=== PATIENT | female | born 1985 | race Caucasian/White ===

== ENCOUNTER → 2019-12-18 13:21 | Outpatient (BNVA) | payer OTHER, SELFPAY | PROVIDERS: Family Provider Nurse Practitioner; PCP Nurse Practitioner; Visit Provider Nurse Practitioner Family | DX: Z11.59 Encounter for screening for other viral diseases (principal) | CPT/HCPCS: 87635 ==

== ENCOUNTER 2021-01-11 17:51 | Emergency (ER) | payer SELFPAY ==
[2021-01-11 17:57] VITALS: BP 131/89; PULSE 83; RESP 18; TEMP 36.8; O2SAT 99; BMI 48.0
--- NOTE | 2021-01-11 18:04 | ED_ITS ---
HPI - Extremity Injury (Lower) General: Chief Complaint: Extremity Injury, Lower Stated Complaint: left leg pain due to fall Time Seen by Provider: 01/11/21 17:56 Source: patient Mode of arrival: wheelchair Limitations: no limitations History of Present Illness: HPI Narrative: Patient is a nice 35-year-old female presents to ED today with complaint of left calf pain and swelling. Patient tells me just prior to arrival she was walking down a flight of stairs and when she stepped down she heard a pop and immediate pain and swelling to her left calf. She denies any twisting injury. There was no fall. She states all of her pain is located to her posterior calf. Patient states she is not able to bear weight secondary to discomfort. MD complaint: leg injury Onset (ago): hour(s) Place: home Severity: severe Relieving factors: immobilization Exacerbating factors: weight bearing, movement and palpation Associated symptoms: Reports inability to bear weight Other symptoms: none Review of Systems Const: Denies: fever(s) Card: Denies: chest pain Resp: Denies: dyspnea Musc: Reports: extremity pain (L calf) and extremity swelling (L calf); Denies: joint pain, joint swelling, joint redness or joint warmth Skin/Breast: Denies: rash Neuro: Denies: numbness in extremities, weakness in extremities or sensory changes PFSH ED PFSH: Medical History (Updated 01/11/21 @ 18:26 by JOHN Hickey) History of herpes zoster History of thyroid cancer Hypothyroidism associated with surgical procedure Surgical History (Updated 07/16/19 @ 09:07 by CLAYTON Boss) History of 2012 and 2013 History of melanoma excision Back in 2009 History of thyroidectomy, total 2017 History of tonsillectomy 2016 Family History (Updated 07/16/19 @ 09:07 by CLAYTON Boss) Sister Cancer Bone Denies family history of Diabetes Hypertension Social History Smoking and tobacco status: never smoked Second hand smoke exposure: No Alcohol intake: current Alcohol intake frequency: holidays/special occasions only Alcohol type: wine Adopted: No Caregiver/support person: Yes Lives independently: Yes Household members: spouse and children Housing: Manufactured/Mobile home Marital status: Number of children: 2 Highest education level completed: Some College, No Degree service: No Current occupational status: unemployed Sexually active: Yes Current gender identity: Female Female Reproductive History: Date of last menstrual period: 07/03/19 Physical Exam Const: COMMON NORMALS: no acute distress, patient oriented x3, no limitations and alert GENERAL APPEARANCE: cooperative Extremity: GENERAL: Yes normal exam except as noted OTHER: pt has significant swelling and tenderness to L posterior calf; no ecchymosis; no tenderness to Achilles tendon insertion; negative Carvalho's test Neuro: COMMON NORMALS: patient oriented x3, moves all extremities, no focal motor deficits and no sensory deficits noted SENSORIUM/ORIENTATION: Yes alert GAIT: Yes Unable to assess gait Skin: COMMON NORMALS: no rashes or lesions noted GENERAL SKIN EXAM: no rashes or lesions noted TRAUMA: no lacerations or abrasions Course Vital Signs: Vital signs: Vital Signs Temperature 98.3 F 01/11/21 17:57 Pulse Rate 83 01/11/21 17:57 Respiratory Rate 18 01/11/21 18:21 Blood Pressure 131/89 01/11/21 17:57 Pulse Oximetry 99 01/11/21 17:57 MDM - Extremity Injury (Lower) MDM Narrative: Medical decision making narrative: History and physical exam suspicious for gastrocnemius or possibly plantaris tear/sprain. Due to inability to bear weight will go ahead and place her in a tall walking boot/crutches and have her follow up with orthopedics for further evaluation. Recommend ice, elevation, and compression. Imaging Data^: XR tib/fib: My impression: soft tissue swelling to posterior calf; no bony injuries noted Discharge Plan Discharge Patient Disposition: Home Clinical Impression: Gastrocnemius muscle tear Qualifiers: Encounter type: initial encounter Laterality: left Qualified Code(s): S86.112A - Strain of other muscle(s) and tendon(s) of posterior muscle group at lower leg level, left leg, initial encounter Condition: Stable Prescriptions: New ibuprofen 800 mg tablet 800 mg PO Q8H PRN (Reason: pain) Qty: 20 RF: 0 hydrocodone-acetaminophen 5-325 mg tablet 1 tab PO Q6H PRN (Reason: pain) Qty: 14 RF: 0 No Action levothyroxine 200 mcg tablet 200 mcg PO DAILY RF: 0 Discharge Orders: Discharge ED (Routine); Ordered 01/11/21 Ordered By: Rhonda Lazo Referrals: Hua Thompson, SUPERVISOR CUTTING AND SEWING ROOM-C [Primary Care Provider] - Patient Instructions: Opioid Safety Activity Restrictions/Additional Instructions: [email or web address]. We are providing ALL patients with information regarding opiate safety. If you received opiate pain medication during your stay or if you received a prescription for opiate pain medication-please review this handout. If not, you may disregard. Thank you. As we discussed no weightbearing until your follow-up appointment with orthopedics. Case management should reach out to you shortly to set you up with this appointment. You may take the prescribed Ibuprofen along with Tylenol as needed for discomfort. You may take the hydrocodone as needed for severe pain. Ice calf for 20 mins 4x daily and elevate above level of heart to help with swelling. You need to return to the emergency department for worsening or uncontrollable pain, pallor/coldness to the extremity, loss of sensation, color changes to the leg, or any other concerns you may have. Coding Level of Care Code ED Dietetic Aide for Chg Fwd Exam Expanded Problem Focused
--- NOTE | 2021-01-11 18:12 | XRR_ITS ---
PROCEDURE INFORMATION: Exam: XR Left Tibia and Fibula Exam date and time: 01/11/2021 6:12 PM Age: 35 years old Clinical indication: Lower leg; Left; Patient HX: C/O pain after pop sensation when slipped on a step; Additional info: Injury/swelling TECHNIQUE: Imaging protocol: XR Left tibia and fibula. Views: 2 views. COMPARISON: No relevant prior studies available. FINDINGS: Bones/joints: Normal. Soft tissues: Normal. XR/XR tibia fibula LT 2V [id number] IMPRESSION: No acute findings. Radiation Dose CTDIVOL = (mGy): DLP = (mGy-cm)
[2021-01-11 18:21] VITALS: RESP 18
[2021-01-11] MEDS: morphine 4 mg/mL SDV 1 mL IM (18:21)
--- NOTE | 2021-01-12 09:26 | DCPLANNER ---
pre school manager had message to schedule a follow up appointment for patient with ortho. pre school manager called the ortho clinic, spoke with Sammi, gave clinic patients information. pre school manager was told that patients information would be printed and reviewed. Clinic will call patient with appointment information.
--- NOTE | 2021-01-14 14:27 | DCPLANNER ---
Patient had a follow up appointment scheduled for 01.12.[address] Galarza at [facility] - patient did attend appointment.
== END 2021-01-11 18:55 | disposition home or self-care (01) ==
PROVIDERS: Emergency Provider Physician Assistant; PCP Nurse Practitioner
DX: S86.112A Strain of other muscle(s) and tendon(s) of posterior muscle group at lower leg level, left leg, initial encounter (principal); Z85.850 Personal history of malignant neoplasm of thyroid; X58.XXXA Exposure to other specified factors, initial encounter
CPT/HCPCS: 73590; 96372; 99283; E0114; J2270

== ENCOUNTER 2021-02-15 08:11 | Emergency (ER) | payer SELFPAY ==
[2021-02-15 08:42] VITALS: BP 122/94; PULSE 84; RESP 20; O2SAT 96; BMI 48.0
--- NOTE | 2021-02-15 08:42 | USR_ITS ---
PROCEDURE INFORMATION: Exam: US Nonobstetric Pelvis; Complete Exam date and time: 02/15/2021 8:42 AM Age: 35 years old Clinical indication: Other: Bleeding; Prior surgery; Surgery date: 6+ months; Surgery type: 2 c-secs; Patient HX: Positive home preg test; Additional info: Threatened TECHNIQUE: Imaging protocol: Transabdominal pelvic nonobstetric ultrasound. Complete exam. Real time ultrasound with image documentation. COMPARISON: US pelvic with transvaginal 03/29/2015 3:17 PM FINDINGS: GESTATION: Gestation: 7.2 mm endometrial stripe with no intrauterine at this time. Uterus: 9.3 x 5.0 x 6.6 cm uterus. Cervix: 4.2 cm cervix with trace fluid in the endocervical canal. Right ovary/adnexa: 3.2 x 1.7 x 2.1 cm right ovary. Unremarkable right ovary with no torsion. Left ovary/adnexa: Left ovary obscured at this time. Intraperitoneal space: Minimal fluid in the posterior cul-de-sac. Urinary bladder: Normal. Other findings: Unremarkable adnexa bilaterally. US/US pelvic with transvaginal IMPRESSION: 1. 4.2 cm cervix with trace fluid in the endocervical canal. 2. 7.2 mm endometrial stripe with no intrauterine at this time. 3. Left ovary obscured at this time. 4. Unremarkable right ovary with no torsion. 5. Unremarkable adnexa bilaterally. 6. Serial quantitative hCGs and/or followup ultrasound may be helpful.
--- NOTE | 2021-02-15 08:56 | ED_ITS ---
HPI - General Adult General: Chief complaint: General Medical Stated complaint: 6WEEKS PREG AND BLEEDING Time Seen by Provider: 02/15/21 08:39 History of Present Illness: HPI narrative: Patient woke up with vaginal bleeding this morning. Patient took 7 home test yesterday and in following decided she was possibly . Her and her do not use any sort of protection. Patient is 2 weeks late on her current's menses. Patient has had breast tenderness over the last month. Denies any nausea or vomiting urinary type symptoms fever or chills. Patient does have a negative Rh. complaint: Vaginal bleeding Onset (ago): minute(s) Severity: mild Severity scale (1-10): 1 Associated symptoms: Deny chest pain, headache(s), rash or vomiting Review of Systems Const: Denies: fever(s), chills or body aches Eyes: Denies: eye discharge ENMT: Denies: throat pain, oral sores or nasal congestion Card: Denies: chest pain or dyspnea on exertion Resp: Denies: wheezing or stridor GI: Denies: vomiting or diarrhea : Reports: vaginal bleeding Musc: Denies: extremity pain Skin/Breast: Denies: rash Neuro: Denies: headache(s) Psych: Denies: anxiety or depression Titi/Lymph: Denies: easy bruising PFSH ED PFSH: Medical History (Updated 02/15/21 @ 11:46 by MODESTO Hoyt) History of herpes zoster History of thyroid cancer Hypothyroidism associated with surgical procedure Surgical History History of 2012 and 2013 History of melanoma excision Back in 2009 History of thyroidectomy, total 2017 History of tonsillectomy 2016 Family History Sister Cancer Bone Denies family history of Diabetes Hypertension Social History Smoking and tobacco status: never smoked Second hand smoke exposure: No Alcohol intake: current Alcohol intake frequency: holidays/special occasions only Alcohol type: wine Adopted: No Caregiver/support person: Yes Lives independently: Yes Household members: spouse and children Housing: Manufactured/Mobile home Marital status: Number of children: 2 Highest education level completed: Some College, No Degree service: No Current occupational status: unemployed Sexually active: Yes Current gender identity: Female Female Reproductive History: Date of last menstrual period: 01/05/21 Physical Exam Const: COMMON NORMALS: no acute distress, average body habitus and patient oriented x3 HENMT: COMMON NORMALS: normocephalic HEAD & SCALP: normal to inspection and normocephalic FACE & SINUS: normal facial exam Eye: COMMON NORMALS: conjunctivae normal GENERAL EYE: appearance normal, both eyes and all related structures CONJUNCTIVA: Yes conjunctivae normal Neck/C-Spine: COMMON NORMALS: no JVD Chest: COMMONS NORMALS: normal inspection of the chest Resp: COMMON NORMALS: normal respiratory effort Cardio: COMMON NORMALS: no JVD, regular rate and regular rhythm RATE: regular rate RHYTHM: regular rhythm GI: COMMON NORMALS: Normal to inspection, nondistended, normoactive bowel sounds present Extremity: COMMON NORMALS: normal to inspection and full ROM Neuro: COMMON NORMALS: patient oriented x3 Course Vital Signs: Vital signs: Vital Signs Pulse Rate 83 02/15/21 12:19 Respiratory Rate 18 02/15/21 12:19 Blood Pressure 122/94 02/15/21 08:42 Pulse Oximetry 97 02/15/21 12:19 MDM - General Adult MDM Narrative: Medical decision making narrative: Patient presents with po ssible threatened miscarriage. Ultrasound not reveal an IUP in the uterus. hCG is 14.9. Discussed case Dr. Galdamez patient will follow serial hCG at clinic with MODESTO Juarez. Lab Data: Labs: Lab Results 02/15/21 02/15/21 02/15/21 10:20 10:20 10:20 WBC 10.4 10^3/uL H 10 ^3/uL (4.0-10.0) RBC 4.56 10^6/uL 10^6 /uL (4.1-5.3) Hgb 13.5 g/dL g/dL (11.5-15.3) Hct 39.8 % % (37.0-47.0) MCV 87.3 fl fl (81-99) MCH 29.6 pg pg (28.0-34.0) MCHC 33.9 g/dL g/dL (30.0-36.0) RDW 13.3 % % (12.1-15.1) Plt Count 305 10^3/cmm 10^3 /cmm (130-400) MPV 11.5 fL H fL (7.4-10.4) Neut % (Auto) 67.9 % % Lymph % (Auto) 23.8 % % [place] % (Auto) 4.7 % % Eos % (Auto) 2.5 % % Baso % (Auto) 0.8 % % Neut # (Auto) 7.09 10^3/uL 10^3 /uL (1.8-7.7) Lymph # (Auto) 2.5 10^3/uL 10^3/ uL (0.8-4.8) [place] # (Auto) 0.5 10^3/uL 10^3/ uL (0.2-0.9) Eos # (Auto) 0.3 10^3/uL 10^3/ uL (0.0-0.8) Baso # (Auto) 0.1 10^3/uL 10^3/ uL (0.0-0.1) Nucleated RBC % (a uto) 0 % % Nucleated RBCs # 0.0 /100WBC /100W BC PT INR Sodium 138 mmol/L mmol/L (136-145) Potassium 4.1 mmol/L mmol/L (3.5-5.1) Chloride 104 mmol/L mmol/L (98-107) Carbon Dioxide 20 mmol/L L mmol/ L (22-29) Anion Gap 18.1 (5-19) BUN 8 mg/dL mg/dL (6-20) Creatinine 0.8 mg/dL mg/dL (0.5-0.9) GFR Calculation 82.6 mL/min L mL/ min (90-130) Glucose 80 mg/dL mg/dL (65-115) Calculated Osmolal ity 283 mOsm/kg L mOs m/kg (285-295) Calcium 8.2 mg/dL L mg/dL (8.5-10.5) Ser , Jazmín i-Qnt 14.19 mIU/mL mIU/ mL Blood Type A Negative Rho(D) Type Negative Antibody Screen Negative 02/15/21 10:20 WBC RBC Hgb Hct MCV MCH MCHC RDW Plt Count MPV Neut % (Auto) Lymph % (Auto) [place] % (Auto) Eos % (Auto) Baso % (Auto) Neut # (Auto) Lymph # (Auto) [place] # (Auto) Eos # (Auto) Baso # (Auto) Nucleated RBC % (a uto) Nucleated RBCs # PT 14.00 SECONDS SEC ONDS (12.1-14.9) INR 1.05 (0.8-1.2) Sodium Potassium Chloride Carbon Dioxide Anion Gap BUN Creatinine GFR Calculation Glucose Calculated Osmolal ity Calcium Ser , Jazmín i-Qnt Blood Type Rho(D) Type Antibody Screen Discharge Plan Discharge Patient Disposition: Home Clinical Impression: , spontaneous threatened Condition: Stable Prescriptions: No Action levothyroxine 200 mcg tablet 200 mcg PO DAILY RF: 0 ibuprofen 800 mg tablet 800 mg PO Q8H PRN (Reason: pain) Qty: 20 RF: 0 hydrocodone-acetaminophen 5-325 mg tablet 1 tab PO Q6H PRN (Reason: pain) Qty: 14 RF: 0 Discharge Orders: Discharge ED (Routine); Ordered 02/15/21 Ordered By: Chung Pina Referrals: Hua Thompson, GEOPHYSICAL LABORATORY DIRECTOR-C [Primary Care Provider] - Discharge Diet: Usual diet Discharge Activity: Resume usual activity Patient Instructions: Threatened Miscarriage (ED) Activity Restrictions/Additional Instructions: Follow-up with Hua Thompson at the clinic on Tuesday for a serial serum hCG test. If any worsening symptoms between now and then please return here or see Samim. Coding Level of Care Code ED Web Sizer for Carey Fwd Exam Comprehensive
--- NOTE | 2021-02-15 09:36 | PC.NURSE ---
attempted to collect urine ultrasound at bedside will attempt later.
[2021-02-15 10:12] VITALS: PULSE 81; RESP 16; O2SAT 97
[2021-02-15 10:33] LABS: Basophils # 0.1 10^3/uL (0.0-0.1); Basophils % 0.8 %; Eosinophils # 0.3 10^3/uL (0.0-0.8); Eosinophils % 2.5 %; Hematocrit 39.8 % (37.0-47.0); Hemoglobin 13.5 g/dL (11.5-15.3); Lymphocytes # 2.5 10^3/uL (0.8-4.8); Lymphocytes % 23.8 %; Mean Corpuscular HGB Conc 33.9 g/dL (30.0-36.0); Mean Corpuscular Hemoglobin 29.6 pg (28.0-34.0); Mean Corpuscular Volume 87.3 fl (81-99); Mean Platelet Volume 11.5 fL (7.4-10.4); Monocytes # 0.5 10^3/uL (0.2-0.9); Monocytes % 4.7 %; Neutrophils # 7.09 10^3/uL (1.8-7.7); Neutrophils % 67.9 %; Nucleated Red Blood Cells % 0 %; Platelet Count 305 10^3/cmm (130-400); Red Blood Count 4.56 10^6/uL (4.1-5.3); Red Cell Distribution Width 13.3 % (12.1-15.1); White Blood Count 10.4 10^3/uL (4.0-10.0)
[2021-02-15 10:43] LABS: INR 1.05 (0.8-1.2)
[2021-02-15 10:50] LABS: HCG Quantitative 14.19 mIU/mL
[2021-02-15 11:00] LABS: Anion Gap 18.1 (5-19); Blood Urea Nitrogen 8 mg/dL (6-20); Calcium 8.2 mg/dL (8.5-10.5); Carbon Dioxide 20 mmol/L (22-29); Chloride 104 mmol/L (98-107); Glomerular Filtration Rate 82.6 mL/min (90-130); Glucose 80 mg/dL (65-115); Osmolality Calculated 283 mOsm/kg (285-295); Potassium 4.1 mmol/L (3.5-5.1); Sodium 138 mmol/L (136-145)
--- NOTE | 2021-02-15 11:12 | PC.NURSE ---
REPORT GIVEN TO LUDW[facility].
[2021-02-15 12:19] VITALS: PULSE 83; RESP 18; O2SAT 97
== END 2021-02-15 12:22 | disposition home or self-care (01) ==
PROVIDERS: Emergency Provider Nurse Practitioner Family; PCP Nurse Practitioner
DX: O20.0 Threatened abortion (principal); Z3A.01 Less than 8 weeks gestation of pregnancy; Z85.850 Personal history of malignant neoplasm of thyroid
CPT/HCPCS: 76830; 76856; 80048; 84702; 85025; 85610; 86850; 86900; 90384; 99283

== ENCOUNTER → 2021-03-05 11:11 | Outpatient (BNVA) | payer SELFPAY | PROVIDERS: PCP Nurse Practitioner; Visit Provider Nurse Practitioner | DX: E89.0 Postprocedural hypothyroidism (principal); O20.0 Threatened abortion | CPT/HCPCS: 80053; 82607; 84443; 84702 ==

== ENCOUNTER → 2021-07-03 09:12 | Outpatient (BNVA) | payer MEDICAID, SELFPAY | PROVIDERS: PCP Nurse Practitioner; Visit Provider Nurse Practitioner | DX: E89.0 Postprocedural hypothyroidism (principal); E07.9 Disorder of thyroid, unspecified | CPT/HCPCS: 80053; 82607; 84439; 84443; 84481; 84702 ==

== ENCOUNTER 2021-07-09 16:23 | Emergency (ER) | payer MEDICAID, SELFPAY ==
[2021-07-09 16:57] VITALS: BP 130/88; PULSE 87; RESP 16; TEMP 36.6; O2SAT 99; BMI 48.0
--- NOTE | 2021-07-09 17:49 | ED_ITS ---
HPI - Female Genitourinary General: Chief complaint: Urogenital-Female Stated complaint: 6weeks preg. bleeding Time Seen by Provider: 07/09/21 17:44 Source: patient Mode of arrival: ambulatory Limitations: no limitations History of Present Illness: 36-year-old female who is 6 weeks states she has had some vaginal spotting over the last day. States she is concerned she had a miscarriage at roughly 6 7 weeks back in February she denies any pain denies any heavy bleeding states is only spotting she is not seen an OB yet. Denies any worsening proving factors Associated symptoms: Deny abdominal pain, headache(s) or nausea Date of Last Menstrual Period: 05/31/21 Review of Systems Const: Denies: fever(s), chills, body aches or change in appetite Eyes: Denies: blurry vision or eye discomfort ENMT: Denies: throat pain or dental pain Card: Denies: chest pain Resp: Denies: dyspnea GI: Denies: abdominal pain, nausea, vomiting or diarrhea : Reports: vaginal bleeding Musc: Denies: neck pain or back pain Skin/Breast: Denies: rash Neuro: Denies: headache(s) Psych: Denies: depression Titi/Lymph: Denies: easy bruising All/Imm: Denies: urticaria PFSH ED PFSH: Medical History (Updated 07/09/21 @ 19:34 by David Cruz MD) History of herpes zoster History of thyroid cancer Hypothyroidism associated with surgical procedure Surgical History History of 2012 and 2013 History of melanoma excision Back in 2009 History of thyroidectomy, total 2017 History of tonsillectomy 2016 Family History Sister Cancer Bone Denies family history of Diabetes Hypertension Social History Smoking and tobacco status: never smoked Second hand smoke exposure: No Smoking risk assessment/counseling performed?: No Alcohol intake: current Alcohol intake frequency: holidays/special occasions only Alcohol type: wine Desire information about alcohol rehabilitation?: No Counseling given: No Desire information about substance/drug rehabilitation?: No Counseling given: No Adopted: No Caregiver/support person: No Lives independently: Yes Household members: spouse and children Housing: Manufactured/Mobile home Marital status: Number of children: 2 Highest education level completed: Some College, No Degree service: No Current occupational status: employed 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 History of recent travel: No Sexually active: Yes Current gender identity: Female Female Reproductive History: Date of last menstrual period: 05/31/21 Para: 2 Spontaneous abortions: Yes Physical Exam Const: COMMON NORMALS: no acute distress, patient oriented x3 and healthy appearing HENMT: COMMON NORMALS: normocephalic and atraumatic HEAD & SCALP: normocephalic and atraumatic Eye: COMMON NORMALS: Equal, round and reactive pupils present and EOMs intact bilaterally PUPIL: Yes Equal, round and reactive pupils present Neck/C-Spine: COMMON NORMALS: full ROM and supple Chest: COMMONS NORMALS: normal inspection of the chest and normal palpation of entire chest wall Resp: COMMON NORMALS: normal respiratory effort, No retractions, No use of accessory muscles and clear to auscultation bilaterally AUSCULTATION: clear to auscultation bilaterally Cardio: COMMON NORMALS: regular rate, regular rhythm and No murmurs present (Cardio) RATE: regular rate RHYTHM: regular rhythm GI: COMMON NORMALS: Normal to inspection, nondistended, normoactive bowel sounds present, Soft to palpation, non-tender and no masses PALPATION: Yes Soft to palpation Extremity: COMMON NORMALS: normal to inspection and full ROM Neuro: COMMON NORMALS: patient oriented x3, moves all extremities and no focal motor deficits Psych: COMMON NORMALS: mental status grossly normal, Normal thought process present and cooperative THOUGHT PROCESS: Normal thought process present Skin: COMMON NORMALS: no rashes or lesions noted and no wounds GENERAL SKIN EXAM: no rashes or lesions noted Course Vital Signs: Vital signs: Vital Signs Temperature 97.8 F 07/09/21 16:57 Pulse Rate 87 07/09/21 16:57 Respiratory Rate 16 07/09/21 16:57 Blood Pressure 130/88 07/09/21 16:57 Pulse Oximetry 99 07/09/21 16:57 MDM - Female Medical Decision Making Patient presents here with a threatened miscarriage ultrasound did show a yolk sac she is to follow-up in 2 days with her OB to have a repeat quantitative drawn patient given RhoGAM here she is stable for discharge return if worsening Lab Data : 07/09/21 18: Laboratory Results WBC 12.9 10^3/uL (4.0-10.0) H 07/09/21 18: RBC 4.52 10^6/uL (4.1-5.3) 07/09/21 18: Hgb 13.3 g/dL (11.5-15.3) 07/09/21 18: Hct 40.7 % (37.0-47.0) 07/09/21 18: MCV 90.0 fl (81-99) 07/09/21 18: MCH 29.4 pg (28.0-34.0) 07/09/21 18: MCHC 32.7 g/dL (30.0-36.0) 07/09/21: RDW 13.5 % (12.1-15.1) 07/09/21 18: Plt Count 244 10^3/cmm (130-400) 07/09/21 18: MPV 11.7 fL (7.4-10.4) H 07/09/21 18: Neut % (Auto) 71.6 % 07/09/21 18: Lymph % (Auto) 20.9 % 07/09/21 18: [place] % (Auto) 5.5 % 07/09/21 18: Eos % (Auto) 1.2 % 07/09/21 18: Baso % (Auto) 0.5 % 07/09/21 18: Neut # (Auto) 9.27 10^3/uL (1.8-7.7) H 07/09/21 18: Lymph # (Auto) 2.7 10^3/uL (0.8-4.8) 07/09/21 18: [place] # (Auto) 0.7 10^3/uL (0.2-0.9) 07/09/21 18: Eos # (Auto) 0.2 10^3/uL (0.0-0.8) 07/09/21 18: Baso # (Auto) 0.1 10^3/uL (0.0-0.1) 07/09/21 18: Nucleated RBC % (auto) 0 % 07/09/21 18:26 Nucleated RBCs # 0.0 /100WBC 07/09/21 18:26 Ser , Semi-Qnt 87590.00 mIU/mL 07/09/21 18:26 Discharge Plan Discharge Patient Disposition: Home Clinical Impression: Threatened miscarriage Condition: Stable Prescriptions: No Action levothyroxine 200 mcg tablet 200 mcg PO DAILY 0RF levothyroxine 25 mcg tablet 25 mcg PO DAILY 0RF ibuprofen 800 mg tablet 800 mg PO Q8H PRN (Reason: pain) Qty: 20 0RF Discharge Orders: Discharge ED (Routine); Ordered 07/09/21 Ordered By: David Cruz Referrals: Hua Thompson, MATH AND SCIENCE INSTRUCTOR-C [Primary Care Provider] - Discharge Diet: Advance as tolerated Discharge Activity: Resume usual activity Patient Instructions: Threatened Miscarriage (ED) Coding Level of Care Code ED Refinery Technician for Carey Fwd Exam Comprehensive
--- NOTE | 2021-07-09 18:09 | USR_ITS ---
PROCEDURE INFORMATION: Exam: US First Trimester, Transabdominal Exam date and time: 07/09/2021 6:48 PM Age: 36 years old Clinical indication: Lmp or gestational age (in weeks): 6w 3d; Antepartum complications; Bleeding; ; Additional info: Threatened miscarriage TECHNIQUE: Imaging protocol: Real-time transabdominal obstetrical ultrasound of the maternal pelvis and a first trimester , less than 14 weeks 0 days, with image documentation. COMPARISON: CT abdomen pelvis w con* [id number] 08/02/2014 2:01 AM FINDINGS: Gestation: Single intrauterine gestational sac with an ultrasonographic age of 6 weeks 3 days based on gestational sac size according to technologist notes, negative for heart rate or definite pole demonstrated, perhaps due to age or an abnormal , close clinical correlation, serial beta HCG levels and follow-up ultrasound as clinically indicated advised. MATERNAL: Uterus: Unremarkable. Cervix: Unremarkable. Right ovary/adnexa: Unremarkable ovary. Left ovary/adnexa: Unremarkable ovary. Intraperitoneal space: No intraperitoneal free fluid. US/US OB <=14 wk fetus w transvag IMPRESSION: Single intrauterine gestational sac with an ultrasonographic age of 6 weeks 3 days based on gestational sac size according to technologist notes, negative for heart rate or definite pole demonstrated, perhaps due to age or an abnormal , close clinical correlation, serial beta HCG levels and follow-up ultrasound as clinically indicated advised.
[2021-07-09 18:32] LABS: Basophils # 0.1 10^3/uL (0.0-0.1); Basophils % 0.5 %; Eosinophils # 0.2 10^3/uL (0.0-0.8); Eosinophils % 1.2 %; Hematocrit 40.7 % (37.0-47.0); Hemoglobin 13.3 g/dL (11.5-15.3); Lymphocytes # 2.7 10^3/uL (0.8-4.8); Lymphocytes % 20.9 %; Mean Corpuscular HGB Conc 32.7 g/dL (30.0-36.0); Mean Corpuscular Hemoglobin 29.4 pg (28.0-34.0); Mean Platelet Volume 11.7 fL (7.4-10.4); Monocytes # 0.7 10^3/uL (0.2-0.9); Monocytes % 5.5 %; Neutrophils # 9.27 10^3/uL (1.8-7.7); Neutrophils % 71.6 %; Nucleated Red Blood Cells % 0 %; Platelet Count 244 10^3/cmm (130-400); Red Blood Count 4.52 10^6/uL (4.1-5.3); Red Cell Distribution Width 13.5 % (12.1-15.1); White Blood Count 12.9 10^3/uL (4.0-10.0)
[2021-07-09 21:00] VITALS: PULSE 86; RESP 20; TEMP 36.9; O2SAT 98
[2021-07-09 21:07] VITALS: BP 140/100; PULSE 86; RESP 20; O2SAT 98
== END 2021-07-09 21:09 | disposition home or self-care (01) ==
PROVIDERS: Emergency Provider Emergency Medicine; PCP Nurse Practitioner
DX: O20.0 Threatened abortion (principal); Z3A.01 Less than 8 weeks gestation of pregnancy
CPT/HCPCS: 36430; 76801; 76817; 84702; 85025; 86850; 86900; 90384; 99283

== ENCOUNTER → 2021-07-13 08:40 | Outpatient (BNVA) | payer MEDICAID, SELFPAY | PROVIDERS: PCP Nurse Practitioner; Visit Provider Nurse Practitioner | DX: E89.0 Postprocedural hypothyroidism (principal); O20.0 Threatened abortion | CPT/HCPCS: 84443; 84702 ==

== ENCOUNTER → 2021-07-15 13:49 | Outpatient (BNVA) | payer MEDICAID, SELFPAY | PROVIDERS: PCP Nurse Practitioner; Visit Provider Nurse Practitioner Women's Health | DX: N92.6 Irregular menstruation, unspecified (principal) | CPT/HCPCS: 81025 ==

== ENCOUNTER → 2021-07-28 09:49 | Outpatient (BNVA) | payer MEDICAID, SELFPAY | PROVIDERS: PCP Nurse Practitioner; Visit Provider Nurse Practitioner | DX: E89.0 Postprocedural hypothyroidism (principal); N92.6 Irregular menstruation, unspecified | CPT/HCPCS: 80053; 84439; 84443; 84481; 84702 ==

== ENCOUNTER → 2021-08-04 09:39 | Outpatient (BNVA) | payer MEDICAID, SELFPAY | PROVIDERS: PCP Nurse Practitioner; Visit Provider Obstetrics & Gynecology | DX: Z34.90 Encounter for supervision of normal pregnancy, unspecified, unspecified trimester (principal) | CPT/HCPCS: 80053; 80307; 81000; 82570; 82950; 84156; 84443; 84550; 86592; 86762; 86803; 87086; 87340; 87806 ==

== ENCOUNTER → 2021-08-05 10:15 | Outpatient (BNVA) | payer MEDICAID, SELFPAY | PROVIDERS: PCP Nurse Practitioner; Visit Provider Obstetrics & Gynecology | DX: Z34.90 Encounter for supervision of normal pregnancy, unspecified, unspecified trimester (principal); R79.89 Other specified abnormal findings of blood chemistry | CPT/HCPCS: 84439; 84481 ==

== ENCOUNTER → 2021-08-18 11:20 | Outpatient (BNVA) | payer MEDICAID, SELFPAY | PROVIDERS: PCP Nurse Practitioner; Visit Provider Obstetrics & Gynecology | DX: O09.90 Supervision of high risk pregnancy, unspecified, unspecified trimester (principal); Z3A.00 Weeks of gestation of pregnancy not specified | CPT/HCPCS: 81000; 87491; 87591; 87624 ==

== ENCOUNTER → 2021-08-24 00:01 | Outpatient (BNVA) | payer MEDICAID, SELFPAY | PROVIDERS: PCP Nurse Practitioner; Visit Provider Obstetrics & Gynecology | DX: O09.90 Supervision of high risk pregnancy, unspecified, unspecified trimester (principal); Z3A.00 Weeks of gestation of pregnancy not specified | CPT/HCPCS: 84156 ==

== ENCOUNTER 2022-01-19 09:05 | Outpatient (CLI) | payer MEDICAID, SELFPAY ==
[2022-01-19] VITALS (35 sets, daily range): BP systolic 125–133; BP diastolic 82–97; PULSE 78–117; RESP 16; TEMP 35.7–36.9; O2SAT 97–100; BMI 46.7
[2022-01-19 10:18] LABS: Basophils % 0.3 %; Eosinophils # 0.4 10^3/uL (0.0-0.8); Eosinophils % 3.2 %; Hematocrit 33.6 % (37.0-47.0); Hemoglobin 11.6 g/dL (11.5-15.3); Lymphocytes # 1.8 10^3/uL (0.8-4.8); Lymphocytes % 15.1 %; Mean Corpuscular HGB Conc 34.5 g/dL (30.0-36.0); Mean Corpuscular Hemoglobin 29.9 pg (28.0-34.0); Mean Corpuscular Volume 86.6 fl (81-99); Mean Platelet Volume 12.3 fL (7.4-10.4); Monocytes # 0.7 10^3/uL (0.2-0.9); Monocytes % 5.7 %; Neutrophils # 8.83 10^3/uL (1.8-7.7); Neutrophils % 75.1 %; Nucleated Red Blood Cells % 0 %; Platelet Count 219 10^3/cmm (130-400); Red Blood Count 3.88 10^6/uL (4.1-5.3); Red Cell Distribution Width 12.6 % (12.1-15.1); White Blood Count 11.8 10^3/uL (4.0-10.0)
[2022-01-19 10:37] LABS: Alanine Aminotransferase 16 U/L (0-33); Albumin Level 3.3 g/dL (3.5-5.2); Alkaline Phosphatase 104 U/L (35-105); Anion Gap 19.5 (5-19); Aspartate Amino Transferase 18 U/L (0-32); Blood Urea Nitrogen 9 mg/dL (6-20); Calcium 9.4 mg/dL (8.5-10.5); Carbon Dioxide 20 mmol/L (22-29); Chloride 102 mmol/L (98-107); Creatinine Clr Calc Pharmacy 152.2826; Globulin 3.4 g/dL (1.3-4.6); Glomerular Filtration Rate 95.8 mL/min (90-130); Glucose 114 mg/dL (65-115); Osmolality Calculated 286 mOsm/kg (285-295); Potassium 3.5 mmol/L (3.5-5.1); Sodium 138 mmol/L (136-145); Total Bilirubin 0.8 mg/dL (0.15-1.2); Total Protein 6.7 g/dL (6.6-8.7); Uric Acid 5.6 mg/dL (2.4-5.7)
[2022-01-19 10:47] LABS: Add Urine Microscopic? NO; Charge for UA Resulting for Rev
[2022-01-19 11:04] LABS: Bilirubin Urine Neg (Negative); Blood Urine Neg (Negative); Glucose Urine UA Norm (Normal); Ketones Urine Negative (Negative); Leukocyte Esterase Urine Negative (Negative); Nitrate Urine Negative (Negative); Protein Urine Neg (Negative); Specific Gravity, Urine 1.005 (1.005-1.030); Urine Appearance Clear (CLEAR); Urine Color Yellow (Yellow); Urobilinogen Urine Norm (Negative); pH Urine 7 (5-7)
[2022-01-19 11:16] LABS: Urine Creatinine 57 mg/dL (28-217); Urine Protein Random 8 mg/dL
[2022-01-19 11:19] LABS: UPRO/UCREAT Ratio 0.14 mg/mg CR
== END 2022-01-19 12:05 | disposition home or self-care (01) ==
LOC: OPOB 09:12 → OBGYN 09:13
PROVIDERS: PCP Nurse Practitioner; Visit Provider Family Medicine
DX: O16.9 Unspecified maternal hypertension, unspecified trimester (principal); Z3A.00 Weeks of gestation of pregnancy not specified
CPT/HCPCS: 36415; 59025; 80053; 81003; 82570; 84156; 84550; 85025; 99211

== ENCOUNTER 2022-02-06 20:02 | Outpatient (CLI) | payer MEDICAID, SELFPAY ==
[2022-02-06] VITALS (9 sets, daily range): BP systolic 126–142; BP diastolic 91–98; PULSE 77–106; RESP 18; TEMP 36.2; BMI 47.5
[2022-02-06 21:11] LABS: Add Urine Microscopic? NO; Charge for UA Resulting for Rev
[2022-02-06 21:13] LABS: Basophils % 0.3 %; Eosinophils # 0.3 10^3/uL (0.0-0.8); Eosinophils % 2.2 %; Hematocrit 33.2 % (37.0-47.0); Hemoglobin 11.4 g/dL (11.5-15.3); Lymphocytes # 2.5 10^3/uL (0.8-4.8); Lymphocytes % 20.1 %; Mean Corpuscular HGB Conc 34.3 g/dL (30.0-36.0); Mean Corpuscular Hemoglobin 29.7 pg (28.0-34.0); Mean Corpuscular Volume 86.5 fl (81-99); Mean Platelet Volume 12.6 fL (7.4-10.4); Monocytes # 0.9 10^3/uL (0.2-0.9); Monocytes % 7.3 %; Neutrophils # 8.64 10^3/uL (1.8-7.7); Neutrophils % 69.5 %; Nucleated Red Blood Cells % 0 %; Platelet Count 227 10^3/cmm (130-400); Red Blood Count 3.84 10^6/uL (4.1-5.3); Red Cell Distribution Width 12.7 % (12.1-15.1); White Blood Count 12.5 10^3/uL (4.0-10.0)
[2022-02-06 21:17] LABS: Bilirubin Urine Neg (Negative); Blood Urine Neg (Negative); Glucose Urine UA Norm (Normal); Ketones Urine Negative (Negative); Leukocyte Esterase Urine Negative (Negative); Nitrate Urine Negative (Negative); Protein Urine Neg (Negative); Urine Appearance Clear (CLEAR); Urine Color Yellow (Yellow); Urobilinogen Urine Neg (Negative); pH Urine 7 (5-7)
[2022-02-06 21:35] LABS: Alanine Aminotransferase 11 U/L (0-33); Albumin Level 3.3 g/dL (3.5-5.2); Alkaline Phosphatase 109 U/L (35-105); Anion Gap 15.6 (5-19); Aspartate Amino Transferase 14 U/L (0-32); Blood Urea Nitrogen 10 mg/dL (6-20); Calcium 9.4 mg/dL (8.5-10.5); Carbon Dioxide 21 mmol/L (22-29); Chloride 102 mmol/L (98-107); Globulin 3.2 g/dL (1.3-4.6); Glomerular Filtration Rate 95.8 mL/min (90-130); Glucose 87 mg/dL (65-115); Osmolality Calculated 278 mOsm/kg (285-295); Potassium 3.6 mmol/L (3.5-5.1); Sodium 135 mmol/L (136-145); Total Bilirubin 0.5 mg/dL (0.15-1.2); Total Protein 6.5 g/dL (6.6-8.7); Uric Acid 5.6 mg/dL (2.4-5.7)
[2022-02-06 21:37] LABS: Urine Creatinine 57 mg/dL (28-217); Urine Protein Random 6 mg/dL
[2022-02-06 21:51] LABS: UPRO/UCREAT Ratio 0.11 mg/mg CR
== END 2022-02-06 22:24 | disposition home or self-care (01) ==
LOC: OPOB 20:08 → OBGYN 20:09
PROVIDERS: PCP Nurse Practitioner; Visit Provider Family Medicine
DX: O16.9 Unspecified maternal hypertension, unspecified trimester (principal); Z3A.00 Weeks of gestation of pregnancy not specified; R11.0 Nausea
CPT/HCPCS: 36415; 80053; 81003; 82570; 84156; 84550; 85025; 99211

== ENCOUNTER 2022-02-22 05:00 | Inpatient (IN) | payer MEDICAID, SELFPAY ==
--- NOTE | 2022-02-10 09:44 | ANES.PREANE2 ---
Pre-Anesthetic Assessment Height/Weight: Height 1.63 m Operation Date: 02/22/22 07:00 Proposed Procedures p Section Repeat With Tubal(Bilateral) - Jacinto Haque MD Familial anesthetic complications: none Was Beta Norma taken within 24 hours: N/A Was Clonidine taken within 24 hours: N/A Social No alcohol and No tobacco Exam alert, oriented x 3, clear to auscultation bilaterally and regular rate & rhythm Airway Submandibular: within normal limits Cervical ROM: within normal limits Mallampati: Class II Dentition: full CV/HEM PIH/pre E Metabolic Thyroid Disease Anesthetic Plan ASA status: 2 Anesthesia: Regional (specify below) (SAB) Other: Repeat C/S X3--originally for Pre-E Medications/Allergies Home Medications Medication Instructions Recorded Confirmed Last Taken Type prenat.vits,jorge alberto,oqw-zeuz-oxcnw 1 tab PO DAILY 07/15/21 01/19/22 01/19/22 History levothyroxine 175 mcg capsule 175 mcg PO DAILY #30 caps 08/18/21 01/19/22 02/06/22 08:00 Rx aspirin 81 mg tablet,delayed 81 mg PO DAILY 09/14/21 01/19/22 02/06/22 08:00 History release Allergies Allergy/AdvReac Type Severity Reaction Status Date / Time No Known Allergies Allergy Verified 09/14/21 15:26 [facility] Anesthesia Medical History History of herpes zoster History of pre-eclampsia First -- developed at 36 wks Second -- developed at 32 wks History of thyroid cancer Diagnosed in 2016 and treated with total thyroidectomy. She also received a few courses of radioactive iodine. 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 Mckeon but is mostly managed in terms of medication by her primary care provider Hypothyroidism Iatrogenic-status post total thyroidectomy in 2017 for cancer No pertinent past medical history Denies diabetes, asthma, seizures, DVT/PE PCP: MODESTO Juarez Surgical History History of 1)--2012-- due to preeclamsia and FTP 2)--2013-- repeat History of melanoma excision Back in 2009 History of thyroidectomy, total 2017-for thyroid cancer History of tonsillectomy 2016 Family History Grandmother Stroke Maternal Denies family history of Colon cancer Ovarian cancer Diabetes Heart disease Hypercholesteremia Breast cancer Hypertension Uterine cancer Thyroid disease Social History Smoking and tobacco status: never smoked Female Reproductive History Date of last menstrual period: 05/31/21 Para: 2 Spontaneous abortions: Yes Data Anesthesia Cardiac Studies: No Data to Display
[2022-02-22] VITALS (24 sets, daily range): BP systolic 104–148; BP diastolic 64–89; PULSE 61–102; RESP 16–18; TEMP 36.3–36.8; O2SAT 95–99; BMI 47.5
[2022-02-22 05:46] LABS: Basophils % 0.4 %; Eosinophils # 0.1 10^3/uL (0.0-0.8); Eosinophils % 1.2 %; Hematocrit 35.6 % (37.0-47.0); Hemoglobin 11.9 g/dL (11.5-15.3); Lymphocytes # 2.1 10^3/uL (0.8-4.8); Lymphocytes % 19.1 %; Mean Corpuscular HGB Conc 33.4 g/dL (30.0-36.0); Mean Corpuscular Hemoglobin 28.8 pg (28.0-34.0); Mean Corpuscular Volume 86.2 fl (81-99); Mean Platelet Volume 12.5 fL (7.4-10.4); Monocytes # 0.7 10^3/uL (0.2-0.9); Monocytes % 6.4 %; Neutrophils # 7.82 10^3/uL (1.8-7.7); Neutrophils % 72.3 %; Nucleated Red Blood Cells % 0 %; Platelet Count 226 10^3/cmm (130-400); Red Blood Count 4.13 10^6/uL (4.1-5.3); Red Cell Distribution Width 12.7 % (12.1-15.1); White Blood Count 10.8 10^3/uL (4.0-10.0)
[2022-02-22] MEDS: lactated ringers 1,000 ML 999 ML IV (05:50)
[2022-02-22] MEDS: famotidine 20 mg/2 mL INJ IVP (06:50)
[2022-02-22] MEDS: metoclopramide 5 mg/mL SDV 2 mL 10 MG IVP (06:50)
[2022-02-22] MEDS: ceFAZolin 2,000 MG in sodium chloride 0.9% (plus) 50 ML 100 MG IV (06:50)
[2022-02-22] MEDS: citric acid-sodium citrate 30 mL UDC PO (06:50)
--- NOTE | 2022-02-22 06:51 | P.HP_ITS ---
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 The patient's has been largely unremarkable. Her due date is based on a first trimester ultrasound. While she has had a history of preeclampsia previous pregnancies, there has been no problems with that during this . She has been on aspirin 81 mg. She also has hypothyroidism due to history of thyroid cancer and thyroid removal. Her thyroid levels have been reasonably well controlled. Present Details : 4 Para: 2 Date of Last Menstrual Period: 05/31/21 Calculated Date of Delivery: 03/07/22 Gestational Age Based on Last Menstrual Period: 38 Review of Systems General: Reports: 10 or more systems reviewed and unremarkable except in HPI and below Const: Reports: fatigue; Denies: fever(s) Eyes: Denies: change in vision Card: Denies: chest pain Musc: Reports: back pain Titi/Lymph: Denies: easy bruising Medications/Allergies Home Medications Medication Instructions Recorded Confirmed Last Taken Type prenat.vits,jorge alberto,hal-ttxw-mvxkp 1 tab PO DAILY 07/15/21 02/22/22 02/21/22 History aspirin 81 mg tablet,delayed 81 mg PO DAILY 09/14/21 02/22/22 02/21/22 History release levothyroxine 175 mcg capsule 200 mcg PO DAILY 02/22/22 02/22/22 02/21/22 History Allergies Allergy/AdvReac Type Severity Reaction Status Date / Time No Known Allergies Allergy Verified 02/22/22 05:53 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 She also received a few courses of radioactive iodine. 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 Mckeon but is mostly managed in terms of medication by her primary care provider Hypothyroidism Iatrogenic-status post total thyroidectomy in 2017 for cancer No pertinent past medical history Denies diabetes, asthma, seizures, DVT/PE PCP: MODESTO Juarez Surgical History History of 1)--2012-- due to preeclamsia and FTP 2)--2013-- repeat History of melanoma excision Back in 2009 History of thyroidectomy, total 2017-for thyroid cancer History of tonsillectomy 2015 Family History Grandmother Stroke Maternal Denies family history of Colon cancer Ovarian cancer Diabetes Heart disease Hypercholesteremia Breast cancer Hypertension Uterine cancer Thyroid disease Social History Smoking and tobacco status: never smoked History History History 4 Term 2 0 Miscarriages/Ectopic 1 Living Children 2 Care RADHA Calculator Estimated Delivery Date Method Current WG Current Estimate 03/01/22 LMP (Certain) 39w 1d Other Estimates 03/03/22 Ultrasound #1 38w 6d Expected Delivery Route/Plan Repeat delivery Specific Issues/Plans * PREVIOUS DELIVERY X2--desires repeat--follow-up placentation * HYPOTHYROIDISM status post total thyroidectomy--follow-up thyroid levels * MORBID OBESITY-prepregnancy BMI of 47-early GCT normal-monitor * HISTORY OF PREECLAMPSIA x2-Baseline labs done * REQUEST FOR STERILIZATION-desires-Medicaid consent at 28 weeks * RH NEGATIVE-status post RhoGAM on 07/09/2021 in ER-RhoGAM candidate Vitals/I&O/Wt Last Vital Signs Temp 97.3 F L 02/22/22 06:22 Pulse 95 02/22/22 06:37 BP 104/80 02/22/22 06:37 Weight last 48 hrs Weight 286 lb Physical Exam Const: COMMON NORMALS: patient oriented x3 and alert HENMT: COMMON NORMALS: moist oral mucous membranes HEAD & SCALP: normal to inspection Chest: COMMONS NORMALS: normal inspection of the chest Resp: COMMON NORMALS: clear to auscultation bilaterally AUSCULTATION: clear to auscultation bilaterally Cardio: COMMON NORMALS: regular rate and regular rhythm RATE: regular rate RHYTHM: regular rhythm GI: INSPECTION: Yes normal to inspection and Yes other (Gravid) Extremity: COMMON NORMALS: normal to inspection GENERAL: Yes edema (Trace) Neuro: COMMON NORMALS: patient oriented x3, moves all extremities and no sensory deficits noted SENSORIUM/ORIENTATION: Yes alert Psych: COMMON NORMALS: mental status grossly normal Skin: COMMON NORMALS: no rashes or lesions noted GENERAL SKIN EXAM: no rashes or lesions noted Data 02/22/22 05:36 A&P Assessment and plan (1) 39 weeks gestation of : We will proceed with a lower transverse section and a bilateral tubal ligation. We saw the patient in the office last week and once again reiterated the risks of the procedures including the risks of bleeding, infection, and damage to intra-abdominal organs. We discussed the risks of a tubal ligation including the risk of getting again after a tubal ligation. We also discussed the increased risk of an ectopic post tubal ligation. Clarence nt had no further questions and wishes to proceed. (2) Previous delivery affecting , antepartum: (3) History of pre-eclampsia: (4) Hypothyroidism: (5) Supervision of high risk , antepartum: (6) Encounter for sterilization: Attestations Medical Necessity Statement*: I anticipate routine and post C- section care. Coding Level of Care Code Acute Technical Support Agent for Carey Fwcasper Exam Comprehensive Diagnoses 39 weeks gestation of Z3A.39 Previous delivery affecting , antepartum O34.219 History of pre-eclampsia Z87.59 Hypothyroidism E03.9 Supervision of high risk , antepartum O09.90 Encounter for sterilization Z30.2
--- NOTE | 2022-02-22 06:54 | P.ANESUD_ITS ---
Pre-Anesthetic Update Pre-Anesthetic Assessment: Date of Surgery/Procedure: 02/22/22 Preop Kanchan gnosis: section with bilateral tubal ligation Proposed Procedure: Operation Date: 02/22/22 07:00 Proposed Procedures p Section Repeat With Tubal(Bilateral) - Jacinto Haque MD Any changes to Pre-Anesthetic Assessment?: No Labs Last 48hrs: Short CBC 02/22/22 Range/Units 05:36 WBC 10.8 H (4.0-10.0) 10^3/ uL Hgb 11.9 (11.5-15.3) g/dL Hct 35.6 L (37.0-47.0) % MCV 86.2 (81-99) fl Plt Count 226 (130-400) 10^3/c mm Neut % (Auto) 72.3 % Neut # (Auto) 7.82 H (1.8-7.7) 10^3/u L Vitals: Temperature 97.3 F L 02/22/22 06:22 Pulse Rate 95 02/22/22 06:37 Blood Pressure 104/80 02/22/22 06:37 Exam: Pre-Anes Outpt Exam: alert, oriented x 3, clear to auscultation bilaterally and regular rate & rhythm Cardiac Studies: No Data to Display
--- NOTE | 2022-02-22 08:31 | PM.OP ---
Operative Report Date of procedure: February 22, 2022 Pre-op diagnosis: 1. 39 weeks estimated gestational age 2. History of section 3. Desires sterilization Post-op diagnosis: Same Procedure done: 1. Repeat lower transverse section 2. Intraoperative bilateral tubal ligation using a modified Iveth technique Specimens removed/disposition: 1. Female infant with a weight of 8 pounds 2 ounces and Apgars of 9 and 9 2. Placenta with a three-vessel cord delivered intact 3. Bilateral fallopian tube segments with the right segment being tagged Pathology: 1. Bilateral fallopian tube segments with the right segment being tagged Surgeon: Jacinto Haque Estimated blood loss (mL): 400 Complications: None Procedure: The patient was brought back to the operating room where she was prepped and draped in usual sterile fashion. Anesthesia was found to be adequate. A lower transverse skin incision was then made with a #10 blade. I then dissected down to the underlying subcutaneous tissue until arriving at the prerectal fascia. The fascia was then nicked with the scalpel bilaterally. The fascial incisions were then carried laterally with Ricks scissors. Attention was then turned to the superior aspect of the incision which was grasped with kochers and tented up away from the underlying rectus abdominis muscles. The muscles were then dissected away from the fascia manually, and later with Ricks scissors. Attention was then turned to the inferior aspect of the incision, and the fascia was dissected away from the underlying muscle in similar fashion. The rectus abdominis muscles were then spread manually. The peritoneum was entered manually. Excellent visualization of the uterus was noted. A lower transverse uterine incision was then made with a #10 blade. Upon arriving at the intrauterine cavity, the uterine incision was then extended manually. The was noted to be in vertex position. The baby was delivered without difficulty. After delivery of the head, the mouth and nose were suctioned at the site of the incision. There was no meconium. There was a nuchal cord x1 which was easily delivered over the head of the baby. The baby was then completely delivered and placed on the abdomen. The cord was cut and clamped. The baby was then handed to the waiting nurse. The placenta was removed intact. The uterus was externalized. The intrauterine cavity was cleansed of any remaining debris. The uterine incision was reapproximated in 2 layers. The first layer was performed with 0 Vicryl in a running locked stitch. The second layer was an imbricating stitch also using 0 Vicryl. Attention was then turned to the right fallopian tube which was ligated cut and cauterized with 0 chromic in a modified Iveth fashion. Attention was then turned to the left fallopian tube which was also ligated cut and cauterized in similar fashion. The uterus was replaced into the abdomen. The peritoneum was then irrigated with warm saline. I reexamined the uterine incision and found it to be hemostatic. The rectus abdominis muscles were then reapproximated using 0 Vicryl in a running stitch. The fascia was then reapproximated using 0 Vicryl in running stitch. The subcutaneous tissue was also reapproximated using 0 Vicryl in a running stitch. The skin was reapproximated using 4-0 Vicryl in a running subcuticular stitch. Steri-Strips were placed.. A sterile dressing was placed. All counts were correct x2. Both the mother and baby were in stable condition.
[2022-02-22] MEDS: dextrose 5%-lactated ringers 1,000 ML 125 ML IV (12:39)
--- NOTE | 2022-02-22 12:43 | ANE.PACU2 ---
Inpatient post-anesthesia follow up: Airway intact: Yes Vital signs: Temperature 97.8 F Pulse Rate 82 Respiratory Rate 16 Blood Pressure 145/86 Pulse Oximetry 95 Oxygen Delivery Me thod Room Air Oxygen Flow Rate Fraction of Inspir ed Oxygen Hydration adequate: Yes Nausea and vomiting: No Pain level: 2 Mental status: Baseline
[2022-02-22] MEDS: ketorolac 30 mg/mL INJ IVP ×2 (14:35→20:34)
[2022-02-22] MEDS: benzocaine-menthol 78 gm Canister 1 SPRAY TOPICAL (14:35)
[2022-02-22] MEDS: acyclovir 800 mg Tablet PO (16:56)
[2022-02-22] MEDS: docusate sodium 100 mg Capsule PO (17:00)
[2022-02-22] MEDS: lanolin oint 7 gm 1 APPLIC TOPICAL (17:00)
[2022-02-22] MEDS: ferrous sulfate EC 325 mg Tablet PO (17:00)
[2022-02-22] MEDS: sodium chloride 0.9% 500 ML 999 ML IV (17:41)
[2022-02-22 20:07] LABS: Hematocrit 34.1 % (37.0-47.0); Hemoglobin 11.3 g/dL (11.5-15.3); Mean Corpuscular HGB Conc 33.1 g/dL (30.0-36.0); Mean Corpuscular Volume 87.4 fl (81-99); Mean Platelet Volume 12.6 fL (7.4-10.4); Platelet Count 202 10^3/cmm (130-400); Red Cell Distribution Width 12.9 % (12.1-15.1); White Blood Count 11.3 10^3/uL (4.0-10.0)
[2022-02-22] MEDS: levothyroxine 200 mcg Tablet PO (20:34)
[2022-02-23 04:18] VITALS: BP 133/80; PULSE 70; RESP 15; TEMP 36.8
[2022-02-23] MEDS: HYDROcodone-acetaminophen 5-325 mg Tablet PO (05:33)
--- NOTE | 2022-02-23 07:34 | P.DS_ITS ---
Discharge Providers SHINGLE PACKER Date of Admission: 02/22/22 05:00 Date of Discharge: 02/23/22 Attending Provider at Admission: Jacinto Haque MD Attending Provider at Discharge: Jacinto Haque MD Primary Care Provider: CLAYTON Boss Diagnoses at Discharge Discharge Diagnosis (1) 39 weeks gestation of : Status: Acute (2) Previous delivery affecting , antepartum: Status: Acute (3) History of pre-eclampsia: Status: Acute Permanent problem details: First -- developed at 36 wks Second -- developed at 32 wks (4) Hypothyroidism: Status: Acute Permanent problem details: Iatrogenic-status post total thyroidectomy in 2017 for cancer (5) Supervision of high risk , antepartum: Status: Acute (6) Encounter for sterilization: Status: Acute Reason for Visit Reason for Visit: EDC 03/01/22 Hospital Course Hospital Course The patient presented to the hospital for a scheduled section and bilat eral tubal ligation. Her surgery was without complications. Her course was also unremarkable. Her urine output was adequate. Her vitals were within normal limits. Her bleeding was minimal. She breast-fed well. She passed flatus. She tolerated a regular diet. Her pain was well controlled. She ambulated without difficulty. Information Peripartum Data: Infant Delivery Method: Physical Exam Narrative: She is in no acute distress Lungs are clear auscultation bilaterally Her heart has a regular rate and rhythm Her fundus is below the umbilicus and firm Her dressing is clean, dry and intact Her extremities have trace edema Urinary Catheter Management: Rodrigues: Cath Placed During This Visit: yes, but has since been removed by the nurse Reason for Continuing Indwelling Catheter: Decision to DC Catheter Urinary Catheter Date of Insertion: 02/22/22 Urinary Catheter Time of Insertion: 07:10 Date Urinary Catheter Removed: 02/23/22 Time Urinary Catheter Discontinued: 00:10 History History History 4 Term 2 0 Miscarriages/Ectopic 1 Living Children 2 Discharge Data Studies Completed and Pending Pending at discharge Category Date Time Status Complete Crossmatch Routine Lab 02/22/22 05:36 Results Maternal Hemorrhage Scrn Routine Lab 02/22/22 05:36 Results Rho D Immune Globulin Routine Lab 02/22/22 05:36 Results Type and Screen Routine Lab 02/22/22 05:36 Results Laboratory Results WBC 11.3 10^3/uL (4.0-10.0) H 02/22/22 19:55 RBC 3.90 10^6/uL (4.1-5.3) L 02/22/22 19:55 Hgb 11.3 g/dL (11.5-15.3) L 02/22/22 19:55 Hct 34.1 % (37.0-47.0) L 02/22/22 19:55 MCV 87.4 fl (81-99) 02/22/22 19:55 MCH 29.0 pg (28.0-34.0) 02/22/22 19:55 MCHC 33.1 g/dL (30.0-36.0) 02/22/22 19:55 RDW 12.9 % (12.1-15.1) 02/22/22 19:55 Plt Count 202 10^3/cmm (130-400) 02/22/22 19:55 MPV 12.6 fL (7.4-10.4) H 02/22/22 19:55 Neut % (Auto) 72.3 % 02/22/22 05:36 Lymph % (Auto) 19.1 % 02/22/22 05:36 [place] % (Auto) 6.4 % 02/22/22 05:36 Eos % (Auto) 1.2 % 02/22/22 05:36 Baso % (Auto) 0.4 % 02/22/22 05:36 Neut # (Auto) 7.82 10^3/uL (1.8-7.7) H 02/22/22 05:36 Lymph # (Auto) 2.1 10^3/uL (0.8-4.8) 02/22/22 05:36 [place] # (Auto) 0.7 10^3/uL (0.2-0.9) 02/22/22 05:36 Eos # (Auto) 0.1 10^3/uL (0.0-0.8) 02/22/22 05:36 Baso # (Auto) 0.0 10^3/uL (0.0-0.1) 02/22/22 05:36 Nucleated RBC % (auto) 0 % 02/22/22 05:36 Nucleated RBCs # 0.0 /100WBC 02/22/22 05:36 Blood Type A Negative 02/22/22 05:36 Rho(D) Type Negative 02/22/22 05:36 Antibody Screen Negative 02/22/22 05:36 Screen Negative (Negative) 02/22/22 05:36 Vitals Last Vital Signs Temp 98.3 F 02/23/22 04:18 Pulse 70 02/23/22 04:18 Resp 15 02/23/22 04:18 BP 133/80 02/23/22 04:18 Pulse Ox 97 02/22/22 17:30 O2 Del Method 02/22/22 17:30 Discharge Plan Discharge Patient Disposition: Home Condition: Stable Prescriptions: New ibuprofen 800 mg Tablet 800 mg PO TID Qty: 45 0RF hydrocodone-acetaminophen 5-325 mg Tablet 1 tab PO Q6H PRN (Reason: Moderate To Severe Pain) Qty: 28 0RF Continued aspirin 81 mg tablet,delayed release (DR/EC) 81 mg PO DAILY prenat.vits,jorge alberto,wyl-gqmr-eisxn Tablet 1 tab PO DAILY levothyroxine 175 mcg capsule 200 mcg PO DAILY Discharge Orders: Discharge Order (Routine); Ordered 02/23/22 Ordered By: Jacinto Haque Referrals: Jacinto Haque MD [Physician] - 03/03/22 11:00 am (appt for the at 11 am has already been scheduled) Discharge Diet: Usual diet Discharge Activity: Limit activity as instructed Patient Instructions: Opioid Safety Discharge Attestations SHINGLE PACKER Time Spent in Discharge Care*: less than 30 min Coding Level of Care Code Acute Instant Printer Operator for Chg Fwd Diagnoses 39 weeks gestation of Z3A.39 Previous delivery affecting , antepartum O34.219 History of pre-eclampsia Z87.59 Hypothyroidism E03.9 Supervision of high risk , antepartum O09.90 Encounter for sterilization Z30.2
[2022-02-23] MEDS: ibuprofen 800 mg tablet PO (09:35)
[2022-02-23] MEDS: docusate sodium 100 mg Capsule PO (09:36)
[2022-02-23] MEDS: acyclovir 800 mg Tablet PO (09:36)
[2022-02-23] MEDS: prenatal vitamin Capsule 1 CAP PO (09:36)
[2022-02-23] MEDS: aspirin 81 mg EC Tablet PO (09:36)
[2022-02-23 09:50] VITALS: BP 130/86; PULSE 94; RESP 16; TEMP 37.1
[2022-02-23 09:58] VITALS: BP 130/86; PULSE 94; RESP 16; TEMP 37.1
[2022-02-23 13:05] VITALS: BP 140/94; PULSE 92; RESP 18; TEMP 37; O2SAT 97
== END 2022-02-23 13:05 | disposition home or self-care (01) | DRG 785 ==
PROVIDERS: Admitting Provider Family Medicine; PCP Nurse Practitioner; Visit Provider Family Medicine
PROC: 10D00Z1 Extraction of Products of Conception, Low, Open Approach (ICD-10-PCS; CPT 59514; principal; 2022-02-22 07:00)
DX: O34.211 Maternal care for low transverse scar from previous cesarean delivery (principal); O99.284 Endocrine, nutritional and metabolic diseases complicating childbirth; E03.2 Hypothyroidism due to medicaments and other exogenous substances; O69.81X0 Labor and delivery complicated by cord around neck, without compression, not applicable or unspecified; Z30.2 Encounter for sterilization; Z37.0 Single live birth; Z87.59 Personal history of other complications of pregnancy, childbirth and the puerperium; Z79.899 Other long term (current) drug therapy; Z85.850 Personal history of malignant neoplasm of thyroid; Z3A.39 39 weeks gestation of pregnancy
CPT/HCPCS: 12345; 36415; 51702; 59025; 59409; 85025; 85027; 85460; 86850; 86900; 88302; 90384; 96374; 96376; J0690; J1200; J1885; J2274; J2370; J2765; J3010; J3490; J7040; J7120; J7121; J8499

== ENCOUNTER → 2023-06-09 16:27 | Outpatient (BNVA) | payer MEDICAID, SELFPAY | PROVIDERS: PCP Nurse Practitioner; Visit Provider Nurse Practitioner | DX: R68.89 Other general symptoms and signs (principal); A08.4 Viral intestinal infection, unspecified | CPT/HCPCS: 87400 ==

== ENCOUNTER 2024-01-17 18:45 | Emergency (ER) | payer MEDICAID, SELFPAY ==
[2024-01-17 19:33] VITALS: BP 180/151; PULSE 89; RESP 19; TEMP 36.9; O2SAT 100; BMI 48.0
[2024-01-17 22:00] VITALS: BP 150/109; PULSE 90; O2SAT 97
--- NOTE | 2024-01-17 22:24 | CTR_ITS ---
PROCEDURE INFORMATION: Exam: CT Neck With Contrast Exam date and time: 01/17/2024 11:22 PM Age: 38 years old Clinical indication: Mass, lump, or swelling in neck; Left; Prior surgery; Surgery date: 6+ months; Surgery type: Thyroidectomy, tonsillectomy; Additional info: Left neck pain and swelling, HX of thyroid cancer TECHNIQUE: Imaging protocol: Computed tomography of the neck with contrast. Radiation optimization: All CT scans at this facility use at least one of these dose optimization techniques: automated exposure control; mA and/or kV adjustment per patient size (includes targeted exams where dose is matched to clinical indication); or iterative reconstruction. Contrast material: OMNI 350; Contrast volume: 100 ml; Contrast route: INTRAVENOUS (IV); COMPARISON: CR XR chest 2V* [id number] 05/09/2018 12:49 PM RADIATION DOSE METRICS: Total DLP (mGy-cm): 430.46 FINDINGS: Salivary glands: Normal. Glands are normal in size. Pharynx: Unremarkable. No significant tonsillar enlargement. Prevertebral and retropharyngeal spaces: Unremarkable. Larynx: Unremarkable. Epiglottis is normal. Thyroid: Postsurgical changes status post prior thyroidectomy. Trachea: Visualized trachea is unremarkable. Lungs: Unremarkable as visualized. Lymph nodes: Unremarkable. No lymphadenopathy. Bones/joints: Unremarkable. No acute fracture. Soft tissues: Unremarkable. No significant soft tissue swelling. CT/CT neck w con* [id number] IMPRESSION: No acute findings.
[2024-01-17 22:30] LABS: Erythrocyte Sedimentation Rate 9 mm/hr (0-15)
[2024-01-17 22:32] LABS: Basophils # 0.1 10^3/uL (0.0-0.1); Basophils % 0.6 %; Eosinophils # 0.2 10^3/uL (0.0-0.8); Eosinophils % 1.7 %; Hematocrit 40.9 % (36-47); Lymphocytes # 3.9 10^3/uL (0.8-4.8); Lymphocytes % 29.8 %; Mean Corpuscular Hemoglobin 29.8 pg (27-33); Mean Corpuscular Volume 90.3 fl (85-98); Mean Platelet Volume 11.6 fL (7.4-10.4); Monocytes # 0.7 10^3/uL (0.2-0.9); Monocytes % 5.5 %; Neutrophils # 8.03 10^3/uL (1.8-7.7); Neutrophils % 61.9 %; Nucleated Red Blood Cells % 0 %; Platelet Count 262 10^3/cmm (157-399); Red Blood Count 4.53 10^6/uL (3.85-5.65); Red Cell Distribution Width 14.6 % (12.1-15.1); White Blood Count 12.97 10^3/uL (3.29-11.43)
[2024-01-17 22:42] LABS: Troponin(5th) Baseline < 6 ng/L (0-10)
[2024-01-17] MEDS: dexamethasone 10 mg/mL INJ 8 MG IVP (22:42)
[2024-01-17 22:43] LABS: Alanine Aminotransferase 19 U/L (0-33); Albumin Level 4.8 g/dL (3.5-5.2); Alkaline Phosphatase 85 U/L (35-105); Aspartate Amino Transferase 22 U/L (0-32); Blood Urea Nitrogen 11 mg/dL (6-20); C Reactive Protein 6.3 mg/L (0.0-4.9); Calcium 8.9 mg/dL (8.5-10.5); Carbon Dioxide 26 mmol/L (22-29); Chloride 100 mmol/L (98-107); Creatinine Clr Calc Pharmacy 128.3372; Globulin 2.7 g/dL (1.3-4.6); Glomerular Filtration Rate 81.2 mL/min (90-130); Glucose 94 mg/dL (65-115); Osmolality Calculated 285 mOsm/kg (285-295); Sodium 138 mmol/L (136-145); Total Bilirubin 0.5 mg/dL (0.15-1.2); Total Protein 7.5 g/dL (6.6-8.7)
[2024-01-17 22:45] LABS: Anion Gap 16.1 (5-19); Potassium 4.1 mmol/L (3.5-5.1)
--- NOTE | 2024-01-17 23:01 | ECG_ITS ---
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 Measurements Intervals [place] Rate: 75 P: 67 SD: 172 QRS: 26 QRSD: 93 T: 3 QT: 362 QTc: 405 Interpretive Statements SINUS RHYTHM NONSPECIFIC T-WAVE ABNORMALITY Compared to ECG 03/29/2015 14:06:02 Sinus tachycardia no longer present T-wave abnormality still present Electronically Signed On 01-19-2024 21:16:41 PEARLER by Alexandria Dotson M.D. [email or web address]
--- NOTE | 2024-01-17 23:17 | ED_ITS ---
HPI - Neck Pain/Injury 2 General: Chief Complaint: Neck Pain/Injury Stated Complaint: neck buldge left side arm cant move Time Seen by Provider: 01/17/24 20:10 Source: patient Mode of arrival: ambulatory Limitations: no limitations History of Present Illness: Patient is a 38-year-old female presenting to the emergency department complaining of left neck pain and swelling developing over the past couple weeks. Pertinent to note, she has a history of total thyroidectomy after being diagnosed with thyroid cancer, also reports history of melanoma. She is reporting that the pain is worsened with any movement of her neck, and radiates down to her left shoulder down her left arm. Also reporting some mid back pain. She states her sister of bone cancer, so she is concerned with anything related to her neck as with her initial thyroid cancer presentation she just had some swelling. She is not reporting any fever, nausea/vomiting, or other pertinent symptoms at this time. She states that a couple weeks ago she first noticed the pain, however the swelling today is what concerned her most. She takes levothyroxine and does see endocrinology once a year, is set to see them again in February. She states that the thyroidectomy was in 2016. MD complaint: neck pain (With swelling) Onset (ago): week(s) Radiation: left lateral Quality: tingling Duration: intermittent Relieving factors: movement Context: other (History of thyroid cancer) Associated symptoms: Denies headache(s) or nausea Related Data Previous Rx's Medication Instructions Recorded cetirizine 10 mg tablet (Zyrtec) 10 mg PO DAILY #30 tabs 06/28/23 fluticasone 250 mcg-salmeterol 50 1 inh inhalation BID #60 ea 06/28/23 mcg/dose blistr powdr for inhalation (Advair Diskus) levothyroxine 200 mcg tablet 200 mcg PO DAILY #30 tabs 06/28/23 levothyroxine 25 mcg tablet 25 mcg PO DAILY #30 tabs 06/28/23 azithromycin 500 mg tablet 500 mg PO DAILY 5 days #5 tabs 07/01/23 (Zithromax) cyclobenzaprine 10 mg tablet 10 mg PO TID #15 tabs 01/18/24 Allergies Allergy/AdvReac Type Severity Reaction Status Date / Time No Known Allergies Allergy Verified 01/17/24 19:43 Review of Systems 2 General: Reports: 10 or more systems reviewed and unremarkable except in HPI and below Const: Denies: fever(s), chills or fatigue Eyes: Denies: change in vision ENMT: Denies: throat pain, ear or mastoid pain or nasal discharge Card: Denies: chest pain, palpitations, swelling of feet/ankles or lightheadedness Resp: Denies: dyspnea, productive cough or wheezing GI: Denies: abdominal pain, nausea, vomiting, diarrhea or constipation : Denies: flank pain, difficulty voiding, dysuria or urinary frequency Musc: Reports: neck pain, back pain, extremity pain and other (Neck swelling); Denies: joint pain Skin/Breast: Denies: rash Neuro: Denies: headache(s), numbness in extremities or weakness in extremities PFSH ED 2 PFSH: Medical History Hypothyroidism Iatrogenic-status post total thyroidectomy in 2017 for cancer No pertinent past medical history Denies diabetes, asthma, seizures, DVT/PE PCP: MODESTO Juarez History of pre-eclampsia First -- developed at 36 wks Second -- developed at 32 wks History of thyroid cancer Diagnosed in 2017 and treated with total thyroidectomy. She also received a few courses of radioactive iodine. She does follow-up with an location worker in [place]-Dr. Mckeon but is mostly managed in terms of medication by her primary care provider History of herpes zoster Surgical History History of tonsillectomy 2015 History of 1)--2012-- due to preeclamsia and FTP 2)--2013-- repeat History of thyroidectomy, total 2017-for thyroid cancer History of melanoma excision Back in 2009 Family History Grandmother Stroke Maternal Denies family history of Colon cancer Ovarian cancer Diabetes Heart disease Hypercholesteremia Breast cancer Hypertension Uterine cancer Thyroid disease Social History Smoking and tobacco/nicotine status: never used tobacco/nicotine Alcohol intake: unknown Substance/Drug Use: unknown Adopted: No Caregiver/support person: No Lives independently: Yes Household members: spouse and children Housing: House Marital status: Number of children: 3 service: No Do you think of yourself as: Straight/Heterosexual Current gender identity: Female Female Reproductive History: Date of last menstrual period: 12/17/23 Para: 2 Spontaneous abortions: Yes Physical Exam 2 Const: COMMON NORMALS: no acute distress and no limitations GENERAL APPEARANCE: cooperative, comfortable, well developed and anxious O RIENTATION/CONSCIOUSNESS: Yes awake HENMT: COMMON NORMALS: normocephalic, atraumatic, hearing grossly normal bilaterally, moist oral mucous membranes and oropharynx normal HEAD & SCALP: normocephalic and atraumatic Eye: COMMON NORMALS: Equal, round and reactive pupils present, EOMs intact bilaterally and conjunctivae normal CONJUNCTIVA: Yes conjunctivae normal P UPIL: Yes Equal, round and reactive pupils present Neck/C-Spine: COMMON NORMALS: full ROM, no lymphadenopathy, supple and no JVD OTHER: Postoperative scar to left lateral neck. Reproducible minor pain with range of motion in all planes of the cervical region. No palpable mass, reproducible tenderness to palpation of the left lateral neck. Resp: COMMON NORMALS: normal respiratory effort, No retractions, No use of accessory muscles and clear to auscultation bilaterally AUSCULTATION: clear to auscultation bilaterally Cardio: COMMON NORMALS: no JVD, regular rate, regular rhythm, No clicks present (Cardio), No murmurs present (Cardio) and No rub (Cardio) RATE: r egular rate RHYTHM: regular rhythm GI: COMMON NORMALS: Normal to inspection, nondistended, normoactive bowel sounds present, Soft to palpation and non-tender AUSCULTATION: Yes normoactive bowel sounds PALPATION: Yes Soft to palpation RECTAL EXAM: d eferred Back/Pelvis: COMMON NORMALS: thoracic and lumbar spine normal to inspection, no thoracic nor lumbar tenderness and thoraco-lumbar ROM normal Extremity: COMMON NORMALS: normal to inspection, full ROM and capillary refill normal Skin: COMMON NORMALS: no rashes or lesions noted GENERAL SKIN EXAM: no rashes or lesions noted Course 2 Vital Signs: Vital signs: Vital Signs Temperature 98.4 F 01/17/24 19:33 Pulse Rate 79 01/18/24 00:13 Respiratory Rate 19 H 01/17/24 19:33 Blood Pressure 131/88 01/18/24 00:13 Pulse Oximetry 94 01/18/24 00:13 Oxygen Delivery Me thod Room Air 01/17/24 23:28 MDM - Neck Pain/Injury Medical Decision Making Patient has history of thyroidectomy status post thyroid cancer, was concerned due to neck pain and swelling over the past couple of weeks. Her lab work today was normal. Due to her reporting of left shoulder pain and mid back pain, obtained a troponin and EKG, both of which were unremarkable. Ordered a CT to evaluate for any postsurgical findings, this was also negative. At this time I believe her pain is likely a cervical strain, we will try to treat with muscle relaxers and have her closely follow-up with primary care and endocrinology. All other questions and concerns addressed at this time. Lab Data 01/17/24 22:08 01/17/24 22:[address] 01/17/24 22:24 IMPRESSION: No acute findings. Laboratory Results WBC 12.97 10^3/uL (3.29-11.43) H 01/17/24 22:08 RBC 4.53 10^6/uL (3.85-5.65) 01/17/24 22:08 Hgb 13.50 g/dL (11.27-16.99) 01/17/24 22:08 Hct 40.9 % (36-47) 01/17/24 22:08 MCV 90.3 fl (85-98) 01/17/24 22:08 MCH 29.8 pg (27-33) 01/17/24 22:08 MCHC 33.0 g/dL (30-55) 01/17/24 22:08 RDW 14.6 % (12.1-15.1) 01/17/24 22:08 Plt Count 262 10^3/cmm (157-399) 01/17/24 22:08 MPV 11.6 fL (7.4-10.4) H 01/17/24 22:08 Neut % (Auto) 61.9 % 01/17/24 22:08 Lymph % (Auto) 29.8 % 01/17/24 22:08 [place] % (Auto) 5.5 % 01/17/24 22:08 Eos % (Auto) 1.7 % 01/17/24 22:08 Baso % (Auto) 0.6 % 01/17/24 22:08 Neut # (Auto) 8.03 10^3/uL (1.8-7.7) H 01/17/24 22:08 Lymph # (Auto) 3.9 10^3/uL (0.8-4.8) 01/17/24 22:08 [place] # (Auto) 0.7 10^3/uL (0.2-0.9) 01/17/24 22:08 Eos # (Auto) 0.2 10^3/uL (0.0-0.8) 01/17/24 22:08 Baso # (Auto) 0.1 10^3/uL (0.0-0.1) 01/17/24 22:08 Nucleated RBC % (auto) 0 % 01/17/24 22:08 Nucleated RBCs # 0.0 /100WBC 01/17/24 22:08 ESR 9 mm/hr (0-15) 01/17/24 22:08 Sodium 138 mmol/L (136-145) 01/17/24 22:08 Potassium 4.1 mmol/L (3.5-5.1) 01/17/24 22:08 Chloride 100 mmol/L (98-107) 01/17/24 22:08 Carbon Dioxide 26 mmol/L (22-29) 01/17/24 22:08 Anion Gap 16.1 (5-19) 01/17/24 22:08 BUN 11 mg/dL (6-20) 01/17/24 22:08 Creatinine 0.8 mg/dL (0.5-0.9) 01/17/24 22:08 GFR Calculation 81.2 mL/min (90-130) L 01/17/24 22:08 Glucose 94 mg/dL (65-115) 01/17/24 22:08 Calculated Osmolality 285 mOsm/kg (285-295) 01/17/24 22:08 Calcium 8.9 mg/dL (8.5-10.5) 01/17/24 22:08 Total Bilirubin 0.5 mg/dL (0.15-1.2) 01/17/24 22:08 AST 22 U/L (0-32) 01/17/24 22:08 ALT 19 U/L (0-33) 01/17/24 22:08 Alkaline Phosphatase 85 U/L (35-105) 11/12/24 22:08 Troponin T Baseline < 6 ng/L (0-10) 01/17/24 22:08 C-Reactive Protein 6.3 mg/L (0.0-4.9) H 01/17/24 22:08 Total Protein 7.5 g/dL (6.6-8.7) 01/17/24 22:08 Albumin 4.8 g/dL (3.5-5.2) 01/17/24 22:08 Globulin 2.7 g/dL (1.3-4.6) 01/17/24 22:08 All radiology interpretation(s) finalized by discharge Discharge Plan Discharge Patient Disposition: Home Clinical Impression: Strain of neck muscle Qualifiers: Encounter type: initial encounter Qualified Code(s): S16.1XXA - Strain of muscle, fascia and tendon at neck level, initial encounter Condition: Stable Prescriptions: New cyclobenzaprine 10 mg tablet 10 mg PO TID Qty: 15 0RF No Action fluticasone propion-salmeterol [Advair Diskus] 250-50 mcg/dose blister with device 1 inh inhalation BID Qty: 60 2RF cetirizine [Zyrtec] 10 mg tablet 10 mg PO DAILY Qty: 30 2RF levothyroxine 25 mcg tablet 25 mcg PO DAILY Qty: 30 2RF levothyroxine 200 mcg tablet 200 mcg PO DAILY Qty: 30 2RF azithromycin [Zithromax] 500 mg tablet 500 mg PO DAILY 5 Days Qty: 5 0RF Discharge Orders: Discharge ED (Routine); Ordered 01/18/24 Ordered By: Cristobal Landon Referrals: Hua Thompson, [employer] TRUCK OPERATOR-C [Primary Care Provider] - Patient Instructions: Cervical Strain (ED) Activity Restrictions/Additional Instructions: Take muscle relaxer as prescribed. Gentle range of motion exercises as tolerated. May also apply heat to your neck. Please closely follow-up with primary care and endocrinology as discussed. Return with any new or worsening symptoms. Coding Level of Care Code ED [facility]untlet Pairer for Carey Liang
[2024-01-17 23:28] VITALS: BP 126/85; PULSE 81; O2SAT 95
[2024-01-17] MEDS: iohexol 350 mg/mL 500 mL Btl (per mL) IV (23:30)
[2024-01-17 23:38] VITALS: BP 112/71; PULSE 74; O2SAT 95
[2024-01-18 00:13] VITALS: BP 131/88; PULSE 79; O2SAT 94
[2024-01-18 00:56] VITALS: BP 118/102; PULSE 72; O2SAT 94
[2024-01-18 09:51] LABS: Thyroid Stimulating Hormone 52.29 uIU/mL (0.27-4.20)
== END 2024-01-18 00:45 | disposition home or self-care (01) ==
PROVIDERS: Emergency Provider Physician Assistant; PCP Nurse Practitioner
DX: S16.1XXA Strain of muscle, fascia and tendon at neck level, initial encounter (principal); X58.XXXA Exposure to other specified factors, initial encounter; Z85.850 Personal history of malignant neoplasm of thyroid
CPT/HCPCS: 36415; 70491; 80053; 84443; 84484; 85025; 85651; 86140; 93005; 96374; 99285; J1100

== ENCOUNTER → 2024-01-23 10:29 | Outpatient (BNVA) | payer MEDICAID, SELFPAY | PROVIDERS: PCP Nurse Practitioner; Visit Provider Nurse Practitioner | DX: Z13.6 Encounter for screening for cardiovascular disorders (principal); E03.9 Hypothyroidism, unspecified | CPT/HCPCS: 80061; 84439; 84443; 84481 ==

== ENCOUNTER → 2024-04-13 17:59 | Outpatient (BNVA) | payer MEDICAID, SELFPAY | PROVIDERS: PCP Nurse Practitioner; Visit Provider Family Medicine | DX: J02.9 Acute pharyngitis, unspecified (principal) | CPT/HCPCS: 87400 ==

== ENCOUNTER 2024-07-12 19:10 | Emergency (ER) | payer MEDICAID, SELFPAY ==
[2024-07-12 19:12] VITALS: BMI 49.8
[2024-07-12 19:19] VITALS: BP 126/88; PULSE 72; RESP 18; TEMP 36.6; O2SAT 100
--- NOTE | 2024-07-12 19:19 | XRR_ITS ---
PROCEDURE INFORMATION: Exam: XR Right Ankle Exam date and time: 07/12/2024 7:43 PM Age: 39 years old Clinical indication: Pain; Ankle; Right; Additional info: Right ankle pain TECHNIQUE: Imaging protocol: Radiologic exam of the right ankle. Views: 3 or more views. COMPARISON: No relevant prior studies available. FINDINGS: Bones/joints: No obvious capsular distension or joint effusion. Soft tissues: Soft tissue swelling over the medial and lateral malleolus. XR/XR ankle RT min 3V* [id number] IMPRESSION: 1. Soft tissue swelling over the medial and lateral malleolus. 2. No obvious capsular distension or joint effusion.
--- NOTE | 2024-07-12 20:06 | W.ED.EXTPRO ---
HPI - Extremity Problem General: Chief complaint: Extremity Injury, Lower Stated complaint: R ankle step wrong and it twisted Time Seen by Provider: 07/12/24 19:40 History of Present Illness: Patient twisted right ankle after getting off of a zip line. Has pain along the right lateral ankle. No other injury. Related Data Previous Rx's ?Medication ?Instructions ?Recorded Cytomel 5 mcg tablet (liothyronine) 5 mcg PO DAILY #30 tabs 01/25/24 Synthroid 200 mcg tablet 200 mcg PO DAILY #30 tabs 01/25/24 (levothyroxine) amoxicillin 500 mg capsule 500 mg PO TID #30 caps 04/13/24 hydrocodone 5 mg-acetaminophen 325 1 tab PO Q6H #20 tabs 07/12/24 mg tablet Allergies Allergy/AdvReac Type Severity Reaction Status Date / Time No Known Allergies Allergy Verified 07/12/24 19:16 [facility] ED PFS: Medical History Hypothyroidism Iatrogenic-status post total thyroidectomy in 2017 for cancer No pertinent past medical history Denies diabetes, asthma, seizures, DVT/PE PCP: MODESTO Juarez History of pre-eclampsia First -- developed at 36 wks Second -- developed at 32 wks History of thyroid cancer Diagnosed in 2017 and treated with total thyroidectomy. She also received a few courses of radioactive iodine. She does follow-up with an fire claims adjuster in [place]-Dr. Mckeon but is mostly managed in terms of medication by her primary care provider History of herpes zoster Surgical History History of tonsillectomy 2016 History of 1)--2012-- due to preeclamsia and FTP 2)--2013-- repeat History of thyroidectomy, total 2017-for thyroid cancer History of melanoma excision Back in 2009 Family History Grandmother Stroke Maternal Denies family history of Colon cancer Ovarian cancer Diabetes Heart disease Hypercholesteremia Breast cancer Hypertension Uterine cancer Thyroid disease Social History Smoking and tobacco/nicotine status: never used tobacco/nicotine Alcohol intake: unknown Substance/Drug Use: unknown Adopted: No Caregiver/support person: No Lives independently: Yes Household members: spouse and children Housing: House Marital status: Number of children: 3 service: No Do you think of yourself as: Straight/Heterosexual Current gender identity: Female Female Reproductive History: Date of last menstrual period: 07/12/24 Para: 2 Spontaneous abortions: Yes Physical Exam Const: COMMON NORMALS: no acute distress, average body habitus, patient oriented x3, no limitations, healthy appearing, alert and well nourished Neck/C-Spine: COMMON NORMALS: no JVD Resp: COMMON NORMALS: normal respiratory effort, No retractions, No use of accessory muscles, clear to auscultation bilaterally and percussion normal AUSCULTATION: clear to auscultation bilaterally PERCUSSION: percussion normal Cardio: COMMON NORMALS: no JVD, regular rate, regular rhythm, S1 normal heart sound present, S2 normal heart sound present, No gallops present (Cardio), No clicks present (Cardio), No murmurs present (Cardio), No rub (Cardio) and Peripheral pulses 2+ throughout RATE: regular rate RHYTHM: regular rhythm HEART SOUNDS: S1 normal heart sound present and S2 normal heart sound present PERIPHERAL PULSES: Peripheral pulses 2+ throughout Extremity: OTHER: Patient with soft tissue swelling along the right lateral malleolus. Has soft tissue swelling along the anterior talofibular ligament area. No pain over the base of the fifth metatarsal. No pain along the medial aspect. Neuro: COMMON NORMALS: patient oriented x3 SENSORIUM/ORIENTATION: Yes alert Course Vital Signs: Vital signs: Vital Signs Temperature 97.8 F 07/12/24 19:19 Pulse Rate 72 07/12/24 19:19 Respiratory Rate 18 07/12/24 19:19 Blood Pressure 126/88 07/12/24 19:19 Pulse Oximetry 100 07/12/24 19:19 Oxygen Delivery Me thod Room Air 07/12/24 19:19 MDM - Extremity (Nontraumatic) Medical Decision Making Patient with right ankle injury after twisting her right ankle while getting off a zip line. On exam she has some tenderness along the right lateral malleolus. X-rays show a very tiny avulsion fracture and just soft tissue swelling. Patient placed in air splint and has crutches already. Recommended RICE therapy as well as pain medicine. Recommended weightbearing as tolerated. X-rays reviewed as were per my interpretation. Final radiology read pending. XR interpretation done by ED provider, pending radiology final review Discharge Plan Discharge Patient Disposition: Home Clinical Impression: Ankle sprain and strain Avulsion fracture of ankle Qualifiers: Encounter type: initial encounter Fracture type: closed Laterality: right Qualified Code(s): S82.891A - Other fracture of right lower leg, initial encounter for closed fracture Condition: Stable Prescriptions: New hydrocodone-acetaminophen 5-325 mg tablet 1 tab PO Q6H Qty: 20 0RF No Action levothyroxine [Synthroid] 200 mcg tablet 200 mcg PO DAILY Qty: 30 2RF liothyronine [Cytomel] 5 mcg tablet 5 mcg PO DAILY Qty: 30 2RF amoxicillin 500 mg capsule 500 mg PO TID Qty: 30 0RF Discharge Orders: Discharge ED (Routine); Ordered 07/12/24 Ordered By: Percy Alexander Referrals: Hua Thompson, PHYSICAL THERAPY ASSISTANT INSTRUCTOR-C [Primary Care Provider, Family Practice] Discharge Diet: Usual diet Discharge Activity: Use walker/crutches as instructed Patient Instructions: Opioid Safety, Pain Management Print Language: Tajik Coding Level of Care Code ED Family Manager for Carey Liang
[2024-07-12 20:19] VITALS: BP 130/82; PULSE 72; O2SAT 95
== END 2024-07-12 20:29 | disposition home or self-care (01) ==
PROVIDERS: Emergency Provider Emergency Medicine; PCP Nurse Practitioner
DX: S82.891A Other fracture of right lower leg, initial encounter for closed fracture (principal); S93.401A Sprain of unspecified ligament of right ankle, initial encounter; Z85.820 Personal history of malignant melanoma of skin; Z85.850 Personal history of malignant neoplasm of thyroid; X58.XXXA Exposure to other specified factors, initial encounter
CPT/HCPCS: 73610; 99283

== ENCOUNTER 2024-09-12 15:06 | Outpatient (CLI) | payer MEDICAID, SELFPAY ==
--- NOTE | 2024-09-12 15:14 | XRR_ITS ---
PROCEDURE INFORMATION: Exam: XR Chest Exam date and time: 09/12/2024 3:21 PM Age: 39 years old Clinical indication: Condition or disease; Other: Malignant melanoma of skin; Prior surgery; Surgery date: 6+ months; Surgery type: Melanoma removal on back; Additional info: Personal HX of malignant melanoma of skin TECHNIQUE: Imaging protocol: Radiologic exam of the chest. Views: 2 views. COMPARISON: CR XR chest 2V* [id number] 05/09/2018 12:49 PM FINDINGS: Lungs: Unremarkable. No consolidation or mass. Pleural spaces: Unremarkable. No pleural effusion. No pneumothorax. Heart/Mediastinum: Unremarkable. No cardiomegaly. Bones/joints: Unremarkable. XR/XR chest 2V* [id number] IMPRESSION: No acute findings.
== END 2024-09-12 15:07 | disposition home or self-care (01) ==
LOC: LAB 15:08
PROVIDERS: PCP Nurse Practitioner; Visit Provider Nurse Practitioner Family
DX: Z85.820 Personal history of malignant melanoma of skin (principal)
CPT/HCPCS: 36415; 71046; 83615

== ENCOUNTER → 2024-09-20 13:38 | Outpatient (BNVA) | payer MEDICAID, SELFPAY | PROVIDERS: PCP Nurse Practitioner; Visit Provider Nurse Practitioner | DX: E03.9 Hypothyroidism, unspecified (principal); E55.9 Vitamin D deficiency, unspecified | CPT/HCPCS: 80053; 82306; 82607; 84439; 84443; 84481; 85025 ==

== ENCOUNTER → 2024-12-31 09:43 | Outpatient (BNVA) | payer MEDICAID, SELFPAY | PROVIDERS: PCP Nurse Practitioner; Visit Provider Nurse Practitioner | DX: E89.0 Postprocedural hypothyroidism (principal); E66.813 Obesity, class 3; Z13.6 Encounter for screening for cardiovascular disorders | CPT/HCPCS: 80053; 80061; 84439; 84443; 84481; 85025 ==